=== PATIENT | male | born 1940 | race Caucasian/White ===

== ENCOUNTER 2017-06-11 08:54 | Day surgery (SDC) | payer OTHER ==
--- NOTE | 2017-05-02 15:59 | PAT Medication Instructions ---
Service Date May 02, 2017. Current Home Medication List Acetaminophen (Tylenol), 650 MG PO Q4H PRN for Fever Docusate Sodium (Docusate Sodium), 1 CAP PO HS Folic Acid (Folvite *), 1 MG PO QAM Multivitamins/Minerals (Mvi With Minerals), 1 TAB PO QAM Prednisolone Acetate 1% Oph (Pred Forte 1% Oph), 1 DROP OPB Q12 Timolol Maleate 0.5% Oph (Timoptic 0.5% Oph), 1 DROP OPB Q2D [Two Huy Hn], 4 OZ PO QID Medication Instructions For Your Scheduled Surgery - Hold the following medications the morning of surgery: [Two Huy Hn], 4 OZ PO QID Folic Acid (Folvite *), 1 MG PO QAM Multivitamins/Minerals (Mvi With Minerals), 1 TAB PO QAM - Take the following medications the morning of surgery with a sip of water: Timolol Maleate 0.5% Oph (Timoptic 0.5% Oph), 1 DROP OPB Q2D Prednisolone Acetate 1% Oph (Pred Forte 1% Oph), 1 DROP OPB Q12 Acetaminophen (Tylenol), 650 MG PO Q4H PRN for Fever (if needed) - Take the following medications as scheduled the night before surgery: Timolol Maleate 0.5% Oph (Timoptic 0.5% Oph), 1 DROP OPB Q2D [Two Huy Hn], 4 OZ PO QID Prednisolone Acetate 1% Oph (Pred Forte 1% Oph), 1 DROP OPB Q12 Acetaminophen (Tylenol), 650 MG PO Q4H PRN for Fever (if needed) Docusate Sodium (Docusate Sodium), 1 CAP PO HS If you have any questions please call us at [phone] or [phone] or [phone]
--- NOTE | 2017-05-22 13:58 | PAT Medication Instructions ---
Service Date May 22, 2017. Current Home Medication List Acetaminophen (Tylenol), 650 MG PO Q4H PRN for Fever Docusate Sodium (Docusate Sodium), 1 CAP PO HS Metoprolol Tartrate (Lopressor) (Lopressor), 25 MG PO BID Multivitamins/Minerals (Mvi With Minerals), 1 TAB PO QAM Prednisolone Acetate 1% Oph (Pred Forte 1% Oph), 1 DROP OPB Q12 Timolol Maleate 0.5% Oph (Timoptic 0.5% Oph), 1 DROP OPB Q2D [Two Huy Hn], 4 OZ PO QID Medication Instructions For Your Scheduled Surgery The following are medication instructions for urology procedures scheduled on 05/28/17, 06/11/17, 06/25/17. If there are any medication changes prior to surgery, please contact one of the numbers below for updated medication instructions. - Hold the following medications the morning of surgery: [Two Huy Hn], 4 OZ PO QID Multivitamins/Minerals (Mvi With Minerals), 1 TAB PO QAM - Take the following medications the morning of surgery with a sip of water: Acetaminophen (Tylenol), 650 MG PO Q4H PRN for Fever (if needed) Metoprolol Tartrate (Lopressor) (Lopressor), 25 MG PO BID Prednisolone Acetate 1% Oph (Pred Forte 1% Oph), 1 DROP OPB Q12 Timolol Maleate 0.5% Oph (Timoptic 0.5% Oph), 1 DROP OPB Q2D - Take the following medications as scheduled the night before surgery: [Two Huy Hn], 4 OZ PO QID Prednisolone Acetate 1% Oph (Pred Forte 1% Oph), 1 DROP OPB Q12 (if needed) Metoprolol Tartrate (Lopressor) (Lopressor), 25 MG PO BID Acetaminophen (Tylenol), 650 MG PO Q4H PRN for Fever (if needed) Docusate Sodium (Docusate Sodium), 1 CAP PO HS If you have any questions please call us at [phone] or [phone] or [phone]
[~2017-06-11] VITALS: Ht 182.9 cm; Wt 66.4 kg
[~2017-06-11 08:54] MED LIST: ACET-1311 PO; CAL HN PO; CEFTRIAXONE SOD INJ 1000 MG in DEXTROSE 5% 50ML IV SCH; DOCU100C31 PO; LACTATED RINGER'S 1000ML 1,000 ML IV SCH; LPR25 PO; METO50TA16 PO; MULT-513 PO; PRED1SUS3 OPB; TIMO0.2534 OPB; VANCOMYCIN 1GM/270ML NSS IV SCH
[2017-06-11 09:30] VITALS: BP 160/91; PULSE 68; TEMP 36.5; O2SAT 96; Ht 182.9 cm; Wt 66.4 kg
[2017-06-11 09:44] LABS: HEMATOCRIT 40.7 % (42-52); MEAN CELL VOLUME 88.3 fL (80-100); MEAN CORPUSCULAR HEMOGLOBIN 30.4 pg (25-34); MEAN CORPUSCULAR HGB CONC 34.4 g/dl (32-36); MEAN PLATELET VOLUME 8.7 fL (7.4-10.4); PLATELET COUNT 218 K/uL (130-400); RED BLOOD COUNT 4.61 M/uL (4.7-6.1); WHITE BLOOD COUNT 5.81 K/uL (4.8-10.8)
[2017-06-11 10:06] LABS: BUN/CREATININE RATIO 19.6 (10-20); CALCIUM 9.3 mg/dl (8.5-10.1); CREATININE 0.83 mg/dl (0.60-1.40); POTASSIUM 4.4 mmol/L (3.5-5.1)
[2017-06-11] MEDS ORDERED: ONDANSETRON INJ 2 MG/ML 2 ML VIAL ONE (10:50)
[2017-06-11] MEDS ORDERED: LIDOCAINE HCL 2% 2 ML VIAL (20MG/ML) ONE (10:50)
[2017-06-11] MEDS ORDERED: PROPOFOL IV EMULSION 10 MG/ML 20 ML VIAL IV ONE (10:50)
[2017-06-11] MEDS ORDERED: FENTANYL CITRATE INJ 50 MCG/1 ML 2 ML VIAL ONE ×2 (10:50→13:30)
[2017-06-11] MEDS ORDERED: FENTANYL CITRATE INJ 50 MCG/1 ML 2 ML VIAL IV PRN (11:15)
[2017-06-11] MEDS ORDERED: ATROPINE SULFATE 0.1 MG/ML 5ML SYR IV PRN (11:15)
[2017-06-11] MEDS ORDERED: EpHEDrine SULFATE INJ 50 MG/ML AMP IV PRN (11:15)
--- NOTE | 2017-06-11 11:33 | History and Physical ---
History & Physical Date Jun 11, 2017. Chief Complaint large right kidney stone History of Present Illness The patient is a 76 year old male with complaints of large right kidney stone. He prefers not to go prone for PCNL due to spine concerns so he requests a staged ureteroscopy. 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 Additional History Hepatic Disease: No Endocrine Disorder: No Kidney Disease: Yes Hypertension: No Heart Disease: No Bleeding Tendencies: No Infectious Diseases: Yes Allergies Coded Allergies: No Known Allergies (Unverified , NONE, 06/11/17) Home Medications Scheduled Docusate Sodium (Docusate Sodium), 1 CAP PO HS Metoprolol Tartrate (Lopressor) (Lopressor), 25 MG PO BID Multivitamins/Minerals (Mvi With Minerals), 1 TAB PO QAM Prednisolone Acetate 1% Oph (Pred Forte 1% Oph), 1 DROP OPB Q12 Timolol Maleate 0.5% Oph (Timoptic 0.5% Oph), 1 DROP OPB Q2D [Two Huy Hn], 4 OZ PO QID Scheduled PRN Acetaminophen (Tylenol), 650 MG PO Q4H PRN for Fever Physical Examination Skin: warm/dry Neck: trachea midline Respiratory/Chest: lungs clear, normal breath sounds, no respiratory distress Cardiovascular: regular rate, rhythm Abdomen / GI: normal bowel sounds, non tender Extremities: normal inspection, normal range of motion Diagnosis large right renal stone frequent utis ASA Classification: ASA Class III Plan of Treatment plan the first of several staged ureteroscopies to fragment and remove stone. vanco and ceftriaxone culture specific abt. home today if goes well observe overnight otherwise.
[2017-06-11] MEDS ORDERED: EpHEDrine SULFATE 50MG/5ML SYR ONE (12:57)
[2017-06-11] MEDS ORDERED: GLYCOPYRROLATE INJ 0.2 MG/ML VIAL ONE (13:30)
--- NOTE | 2017-06-11 13:58 | [facility] Operative Report ---
Operative Report Operative Date Jun 11, 2017. Pre-Operative Diagnosis Large right kidney stone Post-Operative Diagnosis Penile Urethral Stricture. Bladder Stones. and large right kidney stone Procedure(s) Performed Cystoscopy, Right Ureteroscopy, Laser Lithotripsy, laser bladder stones; stent placement, farrar placement Surgeon Dr. Ángela Srinivasan Disease Control Inspector Surgeon(s) none Estimated Blood Loss 3mL Findings radio-lucent bladder stones, strictured penile urethra, chronically infected kidney and bladder stones. Fluids 1400mL Specimens A: Bladder Stones Drains 6 fr 24 centimeter double j stent, 16 fr coude farrar Anesthesia LMA Complication(s) None Disposition Recovery Room / PACU Indications large right kidney stone and persistent uti Description of Procedure Patient was given general LMA anesthesia and placed in very narrow low lithotomy with the head and torso elevated 30% to accommodate his spine limitations. His genitals were prepped and draped in sterile fashion. Time out held with team. I placed a 21 fr rigid cystoscope to bladder. The urethra is narrowed the entire penile urethra and another scar at the bulbar urethra. The prostate is not enlarged. Urine is cloudy. I rinsed several times and see 2 bladder stones size of 35mm total. I used a 1000 micron holmium laser to fragment the stones into pieces and rinsed the pieces out thru the cystoscope sheath. The UOs are normal. I placed a stiff wire up right ureter but he J hooks severely. I used a Road runner and with much manipulation I got the wire to the right kidney. Urine is also cloudy draining here. I straightened ureter with stiff wire and then placed a second wire. I plced a 36 centimeter 12/14 ureteral access sheath which passed easily. I rinsed the kidney with a 5 fr open ended. I then placed the flex ureteroscope into the right kidney and used 200 micron holmium laser fiber to break the large stone into scores of pieces. I have lasered about 30% of the stone. Drainage was very good thru the sheath throughout the case. I removed ureteroscope and sheath and placed a 24 centimeter 6 Fr double J stent easily. I drained bladder by placing a 16 fr coude Farrar catheter and inflated balloon with 5mL of water. Thus I concluded case. He transferred to recovery under my escort, in stable condition. Plan: Home today if vitals remain stable. macrobid and or cipro post-op flomax daily oral pain meds as needed repeat left ureteroscopy in 1- 2 weeks ASA 3 dirty case 20 seconds fluoro vanco and ceftriaxone antibiotic event specialist product demonstrator I attest to the content of the Intraoperative Record and any orders documented therein. Any exceptions are noted below.
[2017-06-11] MEDS ORDERED: NITR1CAP16 PO (14:00)
[2017-06-11] MEDS ORDERED: OXYC-57 PO (14:00)
--- NOTE | 2017-06-11 14:02 | Discharge Instructions ---
Discharge Instructions Date of Service Jun 11, 2017. Admission Reason for Admission: Right Kidney Stone, Retention Discharge Discharge Diagnosis / Problem: infected kidney and bladder stones Discharge Goals Goal(s): Decrease discomfort, Improve disease control Activity Recommendations Activity Limitations: resume your previous activity . Instructions / Follow-Up Instructions / Follow-Up keep Farrar until next surgery. return to ER for fever or confusion Discharge Diet Recommended Diet: Regular Diet Fluid Restriction: None Procedures Procedures Performed: Cystoscopy, Right Ureteroscopy, Laser Lithotripsy, laser bladder stones; stent placement, farrar placement Pending Studies Studies pending at discharge: no Medical Emergencies . Who to Call and When: Medical Emergencies: If at any time you feel your situation is an emergency, please call 911 immediately. . Non-Emergent Contact Non-Emergency issues call your: Urologist ([phone]) Call Non-Emergent contact if: temperature is above 100.5 . . "Provider Documentation" section prepared by Ángela Srinivasan. . VTE Core Measure Inpt VTE Proph given/why not?: SCD's [place] Drug Monitoring Program Search Results: patient reviewed within database, no issues identified
--- NOTE | 2017-06-11 14:33 | Anesthesiology Progress Note ---
Anesthesia Post Op Note Date & Time Jun 11, 2017 at 14:33 Vital Signs Pain Intensity: 0 Vital Signs Past 12 Hours Date Time Temp Pulse Resp B/P (MAP) Pulse Ox O2 Delivery O2 Flow Rate FiO2 06/11/17 14:25 82 16 127/86 96 Room Air 06/11/17 14:15 89 16 140/85 100 Oxymask 10 06/11/17 14:05 89 16 132/72 100 Oxymask 06/11/17 13:58 36.0 87 16 144/93 100 Oxymask 10 06/11/17 09:30 36.5 68 20 160/91 (114) 96 Room Air Notes Mental Status: alert / awake / arousable, participated in evaluation Pt Amnestic to Procedure: Yes Nausea / Vomiting: adequately controlled Pain: adequately controlled Airway Patency, RR, SpO2: stable & adequate BP & HR: stable & adequate Hydration State: stable & adequate Anesthetic Complications: no major complications apparent
[2017-06-11 14:40] VITALS: BP 134/83; PULSE 80; TEMP 36.4; O2SAT 94
--- NOTE | 2017-06-11 14:48 | DIAGNOSTIC IMAGING REPORT ---
FLUOROSCOPIC IMAGES FROM RIGHT RETROGRADE EXAM CLINICAL HISTORY: Cystoscopy. Lithotripsy. COMPARISON STUDY: KUB March 24, 2009. Fluoroscopy time: 1 minute and 15 seconds. FINDINGS: 2 fluoroscopic images from a right retrograde exam demonstrate cannulation of the right ureter with placement of a right ureteral stent. Distal aspect of stent projects over the bladder. Proximal aspect of stent was not imaged on this exam. IMPRESSION: Fluoroscopic images from right retrograde exam with ureteral stent insertion. Electronically signed by: Alfa Whitmore M.D. 06/11/2017 2:46 PM Dictated Date/Time: 06/11/2017 2:43 PM
[2017-06-11 15:10] VITALS: BP 127/83; PULSE 82; TEMP 36.6; O2SAT 94
== END 2017-06-11 16:20 | disposition home or self-care (01) ==
LOC: C.ACU 08:54
PROVIDERS: ATTEND Urology
DX: N20.0 Calculus of kidney (principal); N35.9 Urethral stricture, unspecified

== ENCOUNTER 2017-06-25 08:36 | Day surgery (SDC) | payer OTHER ==
[2017-05-22 14:49] VITALS: Ht 182.9 cm; Wt 66.4 kg
[~2017-06-25] VITALS: Ht 182.9 cm; Wt 66.4 kg
[~2017-06-25 08:36] MED LIST changes: -CEFTRIAXONE SOD INJ 1000 MG in DEXTROSE 5% 50ML IV SCH; +CIPROFLOXACIN 500 MG TAB PO SCH; -LPR25 PO; +OXYC-57 PO
[2017-06-25] MEDS ORDERED: ONDANSETRON INJ 2 MG/ML 2 ML VIAL IV PRN (09:30)
[2017-06-25] MEDS ORDERED: PHENYLEPHRINE 100MCG/ML 5ML SYR IV PRN (09:30)
[2017-06-25] MEDS ORDERED: FENTANYL CITRATE INJ 50 MCG/1 ML 2 ML VIAL IV PRN (09:30)
[2017-06-25] MEDS ORDERED: ATROPINE SULFATE 0.1 MG/ML 5ML SYR IV PRN (09:30)
[2017-06-25] MEDS ORDERED: EpHEDrine SULFATE INJ 50 MG/ML AMP IV PRN (09:30)
[2017-06-25] MEDS ORDERED: HYDROmorphone INJ 1 MG/ML SYR IV PRN (09:30)
[2017-06-25] MEDS ORDERED: LABETALOL HCL IV 5 MG/ML 20ML IV PRN (09:30)
[2017-06-25] MEDS ORDERED: FENTANYL CITRATE INJ 50 MCG/1 ML 2 ML VIAL ONE (10:26)
[2017-06-25] MEDS ORDERED: PROPOFOL IV EMULSION 10 MG/ML 20 ML VIAL IV ONE (10:26)
[2017-06-25] MEDS ORDERED: MIDAZOLAM HCL 1 MG/ML 2ML VIAL ONE (10:26)
[2017-06-25] MEDS ORDERED: LIDOCAINE HCL 2% 2 ML VIAL (20MG/ML) ONE ×2 (10:27)
[2017-06-25 10:34] VITALS: BP 127/70; PULSE 74; TEMP 36.3; O2SAT 95
--- NOTE | 2017-06-25 12:26 | History and Physical ---
History & Physical Date Jun 25, 2017. Chief Complaint large right stone with uti History of Present Illness The patient is a 76 year old male with complaints of large infected right kidney stone. This is the second session of lithotripsy. he prefers not to try PCNL. Allergies Coded Allergies: No Known Allergies (Unverified , NONE, 06/25/17) Home Medications Scheduled Docusate Sodium (Docusate Sodium), 1 CAP PO HS Metoprolol Tartrate (Lopressor) (Lopressor), 25 MG PO BID Multivitamins/Minerals (Mvi With Minerals), 1 TAB PO QAM Prednisolone Acetate 1% Oph (Pred Forte 1% Oph), 1 DROP OPB Q12 Timolol Maleate 0.5% Oph (Timoptic 0.5% Oph), 1 DROP OPB Q2D [Two Huy Hn], 4 OZ PO QID Scheduled PRN Acetaminophen (Tylenol), 650 MG PO Q4H PRN for Fever Oxycodone/Acetaminophen 5MG/325MG (Percocet 5MG/325MG), 1 TABLET PO Q6H PRN for Pain Physical Examination Skin: warm/dry, no rash Neck: supple, no adenopathy, trachea midline Respiratory/Chest: lungs clear, normal breath sounds, no respiratory distress Cardiovascular: regular rate, rhythm Abdomen / GI: normal bowel sounds, non tender Neurologic/Psych: alert, + pertinent finding (paralysis bilateral lower extremities) Diagnosis large right infected kidney stone ASA Classification: ASA Class III Plan of Treatment repeat right ureteroscopy laser lithotripsy basket stone extraction, stent exchange. qian software engineer web applications.
[2017-06-25] MEDS ORDERED: EpHEDrine SULFATE INJ 50 MG/ML AMP ONE (13:32)
[2017-06-25] MEDS ORDERED: ONDANSETRON INJ 2 MG/ML 2 ML VIAL ONE (14:55)
--- NOTE | 2017-06-25 15:14 | [facility] Operative Report ---
Operative Report Operative Date Jun 25, 2017. Pre-Operative Diagnosis large right infected kidney stone Post-Operative Diagnosis same as pre-operative Procedure(s) Performed Cystoscopy, Right Ureteroscopy, Laser Lithotripsy, Basket Stone Extraction, stent exchange Surgeon Dr. Ángela Srinivasan Estimated Blood Loss 2ml Findings radio-opaque right renal stone Fluids 1300mL Specimens Specimen A: right ureteral stones Drains 6 fr 24 centimeter double J stent, 16 fr coude farrar Anesthesia LMA Complication(s) None Disposition Recovery Room / PACU Indications large right stone with infection , he prefers to not have PCNL so we are doing staged ureteroscopy. Description of Procedure Patient was given general LMA anesthesia and placed in very narrow low lithotomy with the head and upper torso elevated 30% to accommodate his spine limitations. His genitals were prepped and draped in sterile fashion. Time out held with team. I placed a 21 fr rigid cystoscope to bladder. The urethra is more open from his farrar to allow scope placement. The prostate is not enlarged. Urine is cloudy. I rinsed several times and see 6 tiny stone pieces. I rinsed them out. I grasped his stent tip and withdrew to meatus. Using stent as a guide I placed a stiff wire up right ureter. I placed a 45 centimeter 12/14 ureteral access sheath which passed easily. I rinsed the kidney with a 5 fr open ended. I then placed the flex ureteroscope into the right kidney and used 200 micron holmium laser fiber to break the large stone into scores of pieces. I have lasered about 90% of the stone today. Drainage was very good thru the sheath throughout the case. I used a 2.4 Fr zero tip basket to rmeove scores of pieces. I removed ureteroscope and sheath and placed a 24 centimeter 6 Fr double J stent easily. I drained bladder by placing a 16 fr coude Farrar catheter and inflated balloon with 5mL of water. Thus I concluded case. He transferred to recovery under my escort, in stable condition. Plan: Home today if vitals remain stable. macrobid post-op flomax daily oral pain meds as needed repeat left ureteroscopy in 1- 2 weeks ASA 3 dirty case 22 seconds fluoro vanco and cipro antibiotic personal financial counselor I attest to the content of the Intraoperative Record and any orders documented therein. Any exceptions are noted below.
[2017-06-25] MEDS ORDERED: NITR1CAP16 PO (15:15)
--- NOTE | 2017-06-25 15:17 | Discharge Instructions ---
Discharge Instructions Date of Service Jun 25, 2017. Admission Reason for Admission: Right infected Kidney Stone, Urinary Retention Discharge Discharge Diagnosis / Problem: infected right kidney stone Discharge Goals Goal(s): Improve disease control Activity Recommendations Activity Limitations: resume your previous activity Lifting Limitations: none Exercise/Sports Limitations: none Shower/Bathe: no limitations . Instructions / Follow-Up Instructions / Follow-Up urine will be bloody go to ER for fever of confusion Discharge Diet Recommended Diet: Regular Diet Fluid Restriction: None Procedures Procedures Performed: Cystoscopy, Right Ureteroscopy, Laser Lithotripsy, Basket Stone Extraction, stent exchange Pending Studies Studies pending at discharge: no Medical Emergencies . Who to Call and When: Medical Emergencies: If at any time you feel your situation is an emergency, please call 911 immediately. . Non-Emergent Contact Non-Emergency issues call your: Urologist Call Non-Emergent contact if: temperature is above 100.5 . . "Provider Documentation" section prepared by Ángela Srinivasan. . VTE Core Measure Inpt VTE Proph given/why not?: [place]CD's [place] Drug [place] Search Results: patient reviewed within database, no issues identified
--- NOTE | 2017-06-25 15:37 | DIAGNOSTIC IMAGING REPORT ---
INTRAOPERATIVE RADIOGRAPHS CLINICAL HISTORY: Right-sided lithotripsy and stent placement. Fluoroscopy time: 43 seconds. FINDINGS: 3 spot fluoroscopic views of the right abdomen from a lithotripsy procedure and ureteral stent placement are presented. The 3 images show a right ureteral stent being deployed. An IVC filter is incidentally noted. A large calculus is suggested in the lower pole of the right kidney. IMPRESSION: Intraoperative images from a right ureteral stent placement procedure as above. See operative report for detailed findings. Electronically signed by: Handy Ferguson M.D. 06/25/2017 3:36 PM Dictated Date/Time: 06/25/2017 3:35 PM
--- NOTE | 2017-06-25 16:09 | Anesthesiology Progress Note ---
Anesthesia Post Op Note Date & Time Jun 25, 2017 at 16:08 Vital Signs Pain Intensity: 0 Vital Signs Past 12 Hours Date Time Temp Pulse Resp B/P (MAP) Pulse Ox O2 Delivery O2 Flow Rate FiO2 06/25/17 16:00 87 15 131/82 95 Room Air 06/25/17 15:50 86 15 140/82 93 Room Air 06/25/17 15:40 86 16 151/89 97 Oxymask 8 06/25/17 15:30 88 16 160/88 97 Oxymask 8 06/25/17 15:20 36.3 90 16 146/73 97 Oxymask 8 06/25/17 10:34 36.3 74 18 127/70 (89) 95 Room Air Notes Mental Status: alert / awake / arousable, participated in evaluation Pt Amnestic to Procedure: Yes Nausea / Vomiting: adequately controlled Pain: adequately controlled Airway Patency, RR, SpO2: stable & adequate BP & HR: stable & adequate Hydration State: stable & adequate Anesthetic Complications: no major complications apparent
[2017-06-25 16:15] VITALS: BP 137/81; PULSE 92; TEMP 36; O2SAT 96
[2017-06-25 16:45] VITALS: BP 115/70; PULSE 98; TEMP 36.1; O2SAT 97
[2017-06-25 17:30] VITALS: BP 145/80; PULSE 95; TEMP 36.1; O2SAT 93
[2017-06-25 18:15] VITALS: BP 141/81; PULSE 103; TEMP 36.4; O2SAT 93
== END 2017-06-25 19:10 | disposition home or self-care (01) ==
LOC: C.ACU 08:36
PROVIDERS: ATTEND Urology
DX: N20.0 Calculus of kidney (principal); Z68.20 Body mass index [BMI] 20.0-20.9, adult; M19.90 Unspecified osteoarthritis, unspecified site

== ENCOUNTER → 2017-07-09 | Day surgery (SDC) | payer OTHER ==
[2017-05-22 16:20] VITALS: Ht 182.9 cm; Wt 66.4 kg
[~2017-07-09] VITALS: Ht 182.9 cm; Wt 66.4 kg
[~2017-07-09] MED LIST changes: +ATROPINE SULFATE 0.1 MG/ML 5ML SYR IV PRN; +CONRAY 30% 150ML BOTTLE ONE; +DEXAMETHASONE SOD INJ 4 MG/ML VIAL ONE; +EpHEDrine SULFATE INJ 50 MG/ML AMP IV PRN; +EpHEDrine SULFATE INJ 50 MG/ML AMP ONE; +FENTANYL CITRATE INJ 50 MCG/1 ML 2 ML VIAL IV PRN; +FENTANYL CITRATE INJ 50 MCG/1 ML 2 ML VIAL ONE; +LIDOCAINE HCL 2% 2 ML VIAL (20MG/ML) ONE; +ONDANSETRON INJ 2 MG/ML 2 ML VIAL IV PRN; +ONDANSETRON INJ 2 MG/ML 2 ML VIAL ONE; +PHENYLEPHRINE 100MCG/ML 5ML SYR ONE; +PROPOFOL IV EMULSION 10 MG/ML 20 ML VIAL IV ONE; -VANCOMYCIN 1GM/270ML NSS IV SCH; +VANCOMYCIN INJ 1,000 MG in SODIUM CHLORIDE 0.9% 250ML 250 ML IV SCH
--- NOTE | 2017-07-09 07:14 | History and Physical ---
History & Physical Date Jul 09, 2017. Chief Complaint right kidney stone, uti History of Present Illness The patient is a 76 year old male with complaints of uti and right kidney stone. He had very large stone but prefers to have staged ureteroscopic treatment instead of PCNL. This is his third treatment of the large stone. He has done well so far. Additional History Hepatic Disease: No Endocrine Disorder: No Kidney Disease: Yes Hypertension: No Heart Disease: No Bleeding Tendencies: No Infectious Diseases: Yes Allergies Coded Allergies: No Known Allergies (Unverified , NONE, 06/25/17) Home Medications Scheduled Docusate Sodium (Docusate Sodium), 1 CAP PO HS Metoprolol Tartrate (Lopressor) (Lopressor), 25 MG PO BID Multivitamins/Minerals (Mvi With Minerals), 1 TAB PO QAM Prednisolone Acetate 1% Oph (Pred Forte 1% Oph), 1 DROP OPB Q12 Timolol Maleate 0.5% Oph (Timoptic 0.5% Oph), 1 DROP OPB Q2D [Two Huy Hn], 4 OZ PO QID Scheduled PRN Acetaminophen (Tylenol), 650 MG PO Q4H PRN for Fever Oxycodone/Acetaminophen 5MG/325MG (Percocet 5MG/325MG), 1 TABLET PO Q6H PRN for Pain Physical Examination Skin: warm/dry Eyes: normal inspection Neck: no adenopathy, trachea midline Respiratory/Chest: lungs clear, normal breath sounds, no respiratory distress Cardiovascular: regular rate, rhythm Extremities: normal inspection Neurologic/Psych: alert, oriented x 3 Diagnosis large right kidney stone, uti Plan of Treatment right ureteroscopy laser lithotripsy basket stone extraction stent exchange. qian brazer controlled atmospheric furnace knee high scds
[2017-07-09 07:50] VITALS: BP 138/86; PULSE 82; TEMP 36.4; O2SAT 96
--- NOTE | 2017-07-09 11:33 | [facility] Operative Report ---
Operative Report Operative Date Jul 09, 2017. Pre-Operative Diagnosis large right kidney stone, urinary tract infection Post-Operative Diagnosis large right kidney stone, urinary tract infection Procedure(s) Performed Cystoscopy, Right Ureteroscopy, Laser Lithotripsy, Basket Stone Extraction, Stent Exchange, farrar Surgeon Dr. Ángela Srinivasan Director Of Pediatric Rehabilitation Surgeon(s) none Estimated Blood Loss 5ml Findings radio-opaque right renal stones Fluids 900mL Specimens no specimens per Dr. Ángela Srinivasan Drains 6 fr 24 centimeter double J stent, 16 fr coude farrar Anesthesia LMA Complication(s) None Disposition Recovery Room / PACU Indications large right infected kidney stone , patient prefers a staged ureteroscopic approach Description of Procedure Patient was given general LMA anesthesia and placed in very narrow low lithotomy with the head and upper torso elevated 30% to accommodate his spine limitations. His genitals were prepped and draped in sterile fashion. Time out held with team. I placed a 21 fr rigid cystoscope to bladder. The urethra is more open from his farrar to allow easy scope placement. The prostate is not enlarged. Urine is not cloudy. I rinsed several times and see a few tiny stone pieces. I rinsed them out. I grasped his stent tip and withdrew to meatus. Using stent as a guide I placed a stiff wire up right ureter. I passed the flexible ureteroscope up the right ureter and made sure there were no stone pieces in ureter. I placed a 45 centimeter 12/14 ureteral access sheath which passed easily. I then placed the flexible ureteroscope into the right kidney and used 200 micron holmium laser fiber to break the large stone into scores of pieces. I have lasered all but a single inferior calyx which I could not reach today. Drainage was very good thru the sheath throughout the case. I used a 2.4 Fr zero tip basket to remove hundreds of pieces. I removed ureteroscope and sheath and placed a 24 centimeter 6 Fr double J stent easily. I drained bladder by placing a 16 fr coude Farrar catheter and inflated balloon with 5mL of water. Thus I concluded case. He transferred to recovery under my escort, in stable condition. Plan: Home today if vitals remain stable. macrobid post-op flomax daily oral pain meds as needed repeat left ureteroscopy in 1- 2 weeks ASA 3 dirty case 24 seconds fluoro vanco and cipro antibiotic operations and maintenance specialist I attest to the content of the Intraoperative Record and any orders documented therein. Any exceptions are noted below.
--- NOTE | 2017-07-09 11:36 | Discharge Instructions ---
Discharge Instructions Date of Service Jul 09, 2017. Admission Reason for Admission: Right Kidney Stone, Urinary Retention Discharge Discharge Diagnosis / Problem: right large kidney stone Discharge Goals Goal(s): Improve disease control Activity Recommendations Activity Limitations: resume your previous activity Lifting Limitations: none Exercise/Sports Limitations: none Shower/Bathe: no limitations . Instructions / Follow-Up Instructions / Follow-Up repeat surgery in 2 weeks Discharge Diet Recommended Diet: Regular Diet Procedures Procedures Performed: Cystoscopy, Right Ureteroscopy, Laser Lithotripsy, Basket Stone Extraction, Stent Exchange, farrar Pending Studies Studies pending at discharge: no Medical Emergencies . Who to Call and When: Medical Emergencies: If at any time you feel your situation is an emergency, please call 911 immediately. . Non-Emergent Contact Non-Emergency issues call your: Urologist ([phone]) Call Non-Emergent contact if: temperature is above 100.5, your pain is not controlled . . "Provider Documentation" section prepared by Ángela Srinivasan. . VTE Core Measure Inpt VTE Proph given/why not?: SCD's
--- NOTE | 2017-07-09 11:49 | Anesthesiology Progress Note ---
Anesthesia Post Op Note Date & Time Jul 09, 2017 at 11:48 Vital Signs Pain Intensity: 0 Vital Signs Past 12 Hours Date Time Temp Pulse Resp B/P (MAP) Pulse Ox O2 Delivery O2 Flow Rate FiO2 07/09/17 11:45 94 16 108/68 97 Oxymask 10 07/09/17 11:35 93 16 112/65 99 Oxymask 10 07/09/17 11:27 36.0 90 16 127/81 99 Oxymask 10 07/09/17 07:50 36.4 82 18 138/86 (103) 96 Room Air Notes Mental Status: alert / awake / arousable, participated in evaluation Pt Amnestic to Procedure: Yes Nausea / Vomiting: adequately controlled Pain: adequately controlled Airway Patency, RR, SpO2: stable & adequate BP & HR: stable & adequate Hydration State: stable & adequate Anesthetic Complications: no major complications apparent
[2017-07-09 12:10] VITALS: BP 119/66; PULSE 91; TEMP 36.4; O2SAT 95
--- NOTE | 2017-07-09 12:15 | DIAGNOSTIC IMAGING REPORT ---
INTRAOPERATIVE FLUOROSCOPIC SPOT VIEWS OF THE ABDOMEN (7 VIEWS) CLINICAL HISTORY: CYSTO RIGHT LASER stone extraction COMPARISON STUDY: KUB dated 06/25/2017 FINDINGS: 24 seconds of fluoroscopic time was utilized. 7 fluoroscopic spot images are provided for interpretation. There is retrograde catheterization the right ureter. The catheter and guidewire were introduced into the renal pelvis. A ureteroscope was then advanced into the renal pelvis. A double-pigtail right-sided nephroureteral stent was placed. Incidental note is made of an IVC filter. IMPRESSION: Intraoperative fluoroscopic spot images performed during laser lithotripsy and stent placement. Electronically signed by: Jc Chavez M.D. 07/09/2017 12:14 PM Dictated Date/Time: 07/09/2017 12:12 PM
[2017-07-09 12:40] VITALS: BP 129/72; PULSE 87; O2SAT 96
[2017-07-09 13:10] VITALS: BP 138/79; PULSE 87; TEMP 36.4; O2SAT 95
== END | disposition home or self-care (01) ==
LOC: C.ACU 06:28
PROVIDERS: ATTEND Urology
DX: N20.0 Calculus of kidney (principal); N39.0 Urinary tract infection, site not specified; Z68.20 Body mass index [BMI] 20.0-20.9, adult; Z98.890 Other specified postprocedural states; M19.90 Unspecified osteoarthritis, unspecified site